=== PATIENT | female | born 1990 | race Caucasian/White ===

== ENCOUNTER 2016-08-16 15:25 | Emergency (ER) | payer SELFPAY ==
[~2016-08-16] VITALS: Ht 152.4 cm; Wt 75.0 kg
[~2016-08-16 15:25] MED LIST: CIPR500T4 PO; NAPR550 PO; PROM25SU8 PO
[2016-08-16 15:27] VITALS: BP 105/69; PULSE 75; RESP 14; TEMP 98.5; O2SAT 99
--- NOTE | 2016-08-16 15:51 | PD ---
HPI Chief Complaint: ENT Complaint Time Seen by Provider: 16:00 Travel History International Travel<30 days: No Contact w/Intl Traveler<30days: No Traveled to known affect area: No History of Present Illness HPI 45-year-old female presents to the emergency Department with complaint of sore throat since yesterday. Reports right-sided ear pressure. Port subjective fever and chills. Denies headache, vomiting, abdominal pain, nasal congestion. Denies lump in throat, difficulty swallowing, in usual drooling. Reports painful swallowing. Reports swollen and tender glands. Denies cough. Says she has history of strep throat multiple times. No known allergies. Has no other medical complaints. No apparent factors or associated signs and symptoms. PFSH Past Medical History Medical History: Denies Significant Hx Diminished Hearing: No Immunizations Current: Yes Tetanus Vaccination: > 5 Years Influenza Vaccination: No ?: Not LMP: 07/20/16 : 0 Past Surgical History Surgical History: No Previous Surgery Social History Alcohol Use: Yes (OCC.) Tobacco Use: Yes [facility] Allergies-Medications (Allergen,Severity, Reaction): Coded Allergies: No Known Allergies (Unverified , 08/16/16) Reported Meds & Prescriptions Reported Meds & Active Scripts Active Magic Mouthwash Pediatric/Adult Liq (Lidocaine/Diphenhydr/Alum/Mg/Simeth) 60 Ml Susp 5 Ml SWISH-SPIT Q3HR PRN Each 5mL contains: Diphenydramine 4.5mg, Viscous Lidocaine 2% 10mg, Maalox Advanced Regular Strength 2.7ml Ibuprofen 800 Mg Tab 800 Mg PO Q6HR PRN Review of Systems Except as stated in HPI: all other systems reviewed are Neg Physical Exam Narrative GENERAL: Well-nourished, well-developed female patient, in no acute distress; afebrile, nontoxic appearing SKIN: Warm and dry. No rash. HEAD: Atraumatic. Normocephalic. EYES: Pupils equal and round at 3 mm with brisk reaction. No scleral icterus. No injection or drainage. PERRLA. ENT: Mucosa pink and dry. Pharynx with 1+ tonsils; without erythema, exudate, and edema. No Uvular edema. No uvular, palatal, or tonsillar deviation. Airway patent. Voice is hoarse. EARS: Bilateral pinnae and external canals appear within normal limits. Bilateral tympanic membranes without erythema, dullness or perforation.. NECK: Trachea midline. Anterior cervical lymphadenopathy and tenderness. CARDIOVASCULAR: Regular rate. RESPIRATORY: No accessory muscle use. GASTROINTESTINAL: Rounded. MUSCULOSKELETAL: No obvious deformities. No clubbing. No cyanosis. No edema. NEUROLOGICAL: Awake and alert. Oriented 3. No obvious cranial nerve deficits. Motor grossly within normal limits. Normal speech. Moves all extremities. PSYCHIATRIC: Appropriate mood and affect; insight and judgment normal. Data Data Last Documented VS Vital Signs Date Time Temp Pulse Resp B/P Pulse Ox O2 Delivery O2 Flow Rate FiO2 08/16/16 16:54 17 08/16/16 15:27 98.5 75 105/69 99 Orders Group A Rapid Strep Screen (08/16/16 15:48) Ibuprofen (Motrin) (08/16/16 16:00) Strep Culture (Group A) (08/16/16 15:14) [facility] Medical Decision Making Medical Screen Exam Complete: Yes Emergency Medical Condition: Yes Medical Record Reviewed: Yes Differential Diagnosis Strep pharyngitis, viral pharyngitis, less likely peritonsillar abscess Narrative Course 25-year-old female with sore throat since yesterday. Patient is afebrile nontoxic appearing. Denies tobacco, difficulty swallowing, unusual drooling. Rapid strep ordered. Ibuprofen ordered and administered in the ER. 1726: Rapid strep negative. Magic mouthwash and ibuprofen prescribed for home. Patient verbalizes understanding and agreement with treatment plan. Patient is medically cleared and stable for discharge. Discussed reasons to return to the emergency department. Instructed patient to follow up with primary care provider. Patient agrees with treatment plan. The patients vital signs are stable and the patient is stable for outpatient follow-up and treatment. Patient discharged home, stable and in no acute distress. Diagnosis Primary Impression: Sore throat Referrals: Primary Care Physician Patient Instructions: Cold Symptoms (ED), General Instructions, Pharyngitis (ED ), Safe Use of Cough and Cold Medicines (ED) Departure Forms: Tests/Procedures, Work Release Enter return to work date: Aug 18, 2016 Additional Instructions: Take Antibiotics as prescribed and complete full course of antibiotics Throw away and change your toothbrush 24 hours after starting antibiotics Get plenty of sleep/rest Rest your voice Drink plenty of fluids to prevent dehydration Use warm saltwater gargles to soothe throat pain Use an air humidifier/turn off ceiling fans Use throat lozenges as needed for sore throat Use ibuprofen or acetaminophen as needed to relieve pain and fever Follow-up with your primary care provider within 2-4 days Return immediately to the emergency department with worsening of symptoms Med/Other Pt SpecificInfo: Prescription(s) given Scripts Bqadhmzkmutvexg-Xrinfkhny-Tay-Alum-Simeth Liq (Magic Mouthwash Pediatric/Adult Liq)60 Ml Susp5 Ml SWISH-SPIT Q3HR PRN (SORE THROAT) #60 ML Ref 0 Each 5mL contains: Diphenydramine 4.5mg, Viscous Lidocaine 2% 10mg, Maalox Advanced Regular Strength 2.7ml Prov:Karissa Carson 08/16/16 Ibuprofen 800 Mg Vus572 Mg PO Q6HR PRN (PAIN) #30 TAB Ref 0 Prov:Karissa Carson 08/16/16 Disposition: 01 DISCHARGE HOME Condition: Stable Karissa Carson Aug 16, 2016 15:51
[2016-08-16] MEDS ORDERED: IBUPROFEN 800 MG TAB PO ONE (16:00)
[2016-08-16 16:54] VITALS: RESP 17
[2016-08-16] MEDS ORDERED: IBUP800T23 PO (17:26)
[2016-08-16] MEDS ORDERED: MAGICPED SWISH-SPIT (17:26)
[2016-08-16 17:29] VITALS: BP 110/69; TEMP 97.8
== END 2016-08-16 17:35 | disposition home or self-care (01) ==
LOC: NEPK 15:25
DX: J02.9 Acute pharyngitis, unspecified (principal); Z72.0 Tobacco use; F12.90 Cannabis use, unspecified, uncomplicated
CPT/HCPCS: 87081; 87880; 99283